=== PATIENT | female | born 1960 | race Caucasian/White ===

== ENCOUNTER 2024-06-22 09:34 | Inpatient (IN) | payer OTHER ==
[2024-06-22] MEDS ORDERED: DICYCLOMINE HCL 20 MG/2 ML AMP IM ONE (10:57)
[2024-06-22] MEDS ORDERED: NA CHLORIDE 0.9% 500 ML ONE (10:57)
[2024-06-22 10:59] LABS: Absolute Basophils 0.1 K/uL (0-0.5); Absolute Eosinophils 0.1 K/uL (0-0.5); Absolute Lymphocytes (CBC) 2.3 K/uL (0.7-4.9); Absolute Monocytes 0.9 K/uL (0.1-1.3); Absolute Neutrophil 7.4 K/uL (1.8-8.0); Basophils % 0.5 % (0-1.3); Eosinophils % 1.3 % (0-4.4); Hematocrit 44.2 % (36.0-45.0); Hemoglobin 14.7 g/dL (12.0-15.0); Lymphocytes % 20.9 % (15.3-44.8); MCH 28.7 pg (27.0-35.0); MCHC 33.3 g/dL (32.0-36.0); MCV 86.2 fL (80-100); MPV 8.7 fL (7.6-11.3); Monocytes % 8.7 % (3.3-12.3); Neutrophils % 68.6 % (41.7-73.7); Platelets 256 thou/uL (152-406); RBC Red Blood Cell Count 5.13 M/uL (3.86-4.86); Red Cell Distribution Width 14.1 % (12.1-15.2)
[2024-06-22 11:04] LABS: Specific Gravity 1.023 (1.005-1.030); Sqamous Epithelial <5 /HPF (None Seen); Transitional Epithelial <5 /HPF (None Seen); Urine Bacteria None Seen /HPF (<20); Urine Bilirubin NEGATIVE (Negative); Urine Blood Negative (Negative); Urine Clarity Turbid (Clear); Urine Color Yellow (Yellow); Urine Culture Reflex Order NOT NEEDED; Urine Glucose NEGATIVE (Negative); Urine Ketones NEGATIVE (Negative); Urine Micro Reflex YN NO BILL MICROSCOPIC; Urine Mucus 1+ /HPF (None Seen); Urine Nitrite NEGATIVE (Negative); Urine Protein NEGATIVE (Negative); Urine RBC <5 /HPF (None Seen); Urine Urobilinogen Normal (Normal); Urine WBC <5 /HPF (<5); Urine pH 5.5 (5.0-7.0)
[2024-06-22 11:17] LABS: Albumin 3.5 g/dL (3.4-5.0); Albumin/Globulin Ratio 0.8 (1.1-1.8); Anion Gap 7.8 mEq/L (5.0-15.0); Bilirubin Total 0.9 mg/dL (0.2-1.0); Globulin 4.5 g/dL (2.3-3.5); Potassium 3.8 mEq/L (3.5-5.1)
[2024-06-22 11:23] LABS: SARS-CoV-2 Antigen CONTROL BLUE LINE VIS/BG OK; SARS-CoV-2 Antigen Rapid Res Negative (Negative)
--- NOTE | 2024-06-22 12:31 | RAD REPORT ---
EXAMINATION: ONE VIEW CHEST XR CLINICAL INDICATION: Female, 64 years old.,COUGH TECHNIQUE: Frontal chest projection is submitted. Examination is limited by patient positioning and t echnique. COMPARISON: No prior exam. FINDINGS: The lungs are somewhat hypoinflated. Diffuse interstitial prominence, could reflect chronic interstit ial changes or an element of COPD. Mild streaky left basilar atelectasis. No pneumothorax or sizable effusion. The heart is normal in size. Mediastinal contours are unremarkable. IMPRESSION: No acute intrathoracic abnormalities, with chronic appearing findings as above.
--- NOTE | 2024-06-22 13:08 | RAD REPORT ---
EXAMINATION: CT Abdomen Pelvis W Contrast CLINICAL INDICATION: Female, 64 years old. ABD PAIN TECHNIQUE: CT abdomen and pelvis was performed, after the administration of IV contrast, as per [facility] protocol. Axial, sagittal and coronal reconstructions were obtained. One or more of the following dose reduction techniques were used: Automated exposure control, adjustment of the mA and k V according to patient size, and iterative reconstruction. Unless otherwise specified, incidental findings do not require dedicated imaging follow-up. COMPARISON: 04/01/2021 FINDINGS: LOWER CHEST: The visualized lung bases are clear. LIVER: Normal in size and contour. No focal lesion. BILIARY SYSTEM: No suspicious abnormalities. SPLEEN: Normal size. No focal lesion. PANCREAS: No mass, ductal dilation, or portia-pancreatic fluid. ADRENALS: Normal; no mass. KIDNEYS: Normal size and contour. No hydronephrosis. Incidentally noted exophytic right interpolar 6. 9 cm cyst, stable. URINARY BLADDER: Unremarkable. GASTROINTESTINAL TRACT: Wall thickening and adjacent fat stranding along the distal sigmoid colon, wi th ill-defined accumulation of fluid along the adventitia of the posterior wall, see series 3 image 74 and series 602 image 49 among others, may suggest a developing phlegmon. No evidence of free air, significant intra-abdominal free fluid, bowel obstruction or abscess. Hyperdense structure projecting posteriorly from the junction of the second and third part of the duo denum, measuring 2.9 cm, appears more prominent than on prior exam. APPENDIX: Normal appendix. LYMPH NODES: No lymphadenopathy. MUSCULOSKELETAL: No acute or suspicious osseous abnormality. ADDITIONAL FINDINGS: None. IMPRESSION: Changes of acute sigmoid diverticulitis, with ill-defined fluid along the adventitia of the posterior wall, measuring up to 1.1 cm in greatest dimension, present and evolving phlegmon. Questionable diverticulum arising from the junction of second and third part of the duodenum measurin g 2.9 cm, with no gas seen within. A follow-up CT of the abdomen with oral contrast is recommended in 1-3 months to reevaluate the finding, and exclude an intraluminal lesion. THIS REPORT CONTAINS FINDINGS THAT MAY BE CRITICAL TO PATIENT CARE. The findings were verbally commun icated via telephone to Dru A Page, PAC on 06/22/2024 1:02 PM.
--- NOTE | 2024-06-22 14:08 | ER ---
Nurse's Notes [facility] Name: Ashvin Hanson Age: 64 yrs Sex: Female : 1960 Arrival Date: 06/22/2024 Time: 09:34 Bed 17 Private MD: Diagnosis: Diverticulitis of large intestine without perforation or abscess without bleeding Presentation: 06/22 10:01 Chief complaint: Patient states: lower abd pain X 1 week, had blood in urine and took iw antibiotics for 4 days. Coronavirus screen: At this time, the client does not indicate any symptoms associated with coronavirus-19. Ebola Screen: No symptoms or risks identified at this time. Initial Sepsis Screen: Does the patient meet any 2 criteria? No. Patient's initial sepsis screen is negative. Does the patient have a suspected source of infection? No. Patient's initial sepsis screen is negative. Risk Assessment: Do you want to hurt yourself or someone else? Patient reports no desire to harm self or others. Onset of symptoms was June 15, 2024. 10:01 Method Of Arrival: Ambulatory iw 10:01 Acuity: AMARIS 3 iw Triage Assessment: 10:13 General: Appears uncomfortable, Behavior is calm, cooperative. Pain: Complains of pain iw in pelvis Pain does not radiate. Pain currently is 5 out of 10 on a pain scale. Quality of pain is described as aching. Neuro: Level of Consciousness is awake, alert, obeys commands, Oriented to person, place, time, situation. Cardiovascular: Capillary refill < 3 seconds Patient's skin is warm and dry. Respiratory: Airway is patent Respiratory effort is even, unlabored, Respiratory pattern is regular, symmetrical. GI: Abdomen is round non-distended, Bowel sounds present X 4 quads. Reports cramping, diarrhea, nausea. : Reports burning with urination. Musculoskeletal: Circulation, motion, and sensation intact. Range of motion: intact in all extremities. Historical: - Allergies: 10:16 No Known Allergies; iw - PMHx: 10:02 Hypothyroidism; iw - PSHx: 10:02 Total abdominal hysterectomy; iw - Immunization history:: Adult Immunizations up to date. - Infectious Disease History:: Denies. - Social history:: Smoking status: unknown. Screenin:[address] [facility] ED Fall Risk Assessment (Adult) History of falling in the last 3 months, iw including since admission No falls in past 3 months (0 pts) Confusion or Disorientation No (0 pts) Intoxicated or Sedated No (0 pts) Impaired Gait No (0 pts) Mobility Assist Device Used No (0 pt) Altered Elimination No (0 pt) Score/Fall Risk Level 0 - 2 = Low Risk Oriented to surroundings, Maintained a safe environment, Educated pt \T\ family on fall prevention, incl call for assistance when getting out of bed, Hourly rounding (assess needs \T\ fall precautionary measures) done. Abuse screen: Denies threats or abuse. Denies injuries from another. Nutritional screening: No deficits noted. Tuberculosis screening: No symptoms or risk factors identified. Assessment: 10:16 Reassessment: see triage assessment. iw 11:20 Reassessment: Patient and/or family updated on plan of care and expected duration. Pain iw level reassessed. Patient is alert, oriented x 3, equal unlabored respirations, skin warm/dry/pink. 11:20 GI: Abdomen is round non-distended, obese, Abd is soft and non tender X 4 quads. iw 12:20 Reassessment: Patient and/or family updated on plan of care and expected duration. Pain ha1 level reassessed. Patient is alert, oriented x 3, equal unlabored respirations, skin warm/dry/pink. 13:20 Reassessment: Patient and/or family updated on plan of care and expected duration. Pain ha1 level reassessed. Patient is alert, oriented x 3, equal unlabored respirations, skin warm/dry/pink. pain 2/10 Patient states feeling better. Patient states symptoms have improved. 14:00 General: Appears comfortable, well groomed, well developed, well nourished, Behavior is me1 calm, cooperative, appropriate for age. Pain: Complains of pain in pelvis Pain does not radiate. Pain currently is 3 out of 10 on a pain scale. Quality of pain is described as crampy, tender, Pain began gradually, Is continuous. Neuro: Level of Consciousness is awake, alert, obeys commands, Oriented to person, place, time, situation, Appropriate for age. Cardiovascular: Patient's skin is warm and dry. Respiratory: Airway is patent Respiratory effort is even, unlabored, Respiratory pattern is regular, symmetrical. GI: No signs and/or symptoms were reported involving the gastrointestinal system. : No signs and/or symptoms were reported regarding the genitourinary system. EENT: No signs and/or symptoms were reported regarding the EENT system. Derm: Skin is intact, is healthy with good turgor, Skin is pink, warm \T\ dry. Musculoskeletal: No signs and/or symptoms reported regarding the musculoskeletal system. Vital Signs: 10:15 BP 139 / 78; Pulse 83; Resp 17 S; Temp 98(O); Pulse Ox 98% on R/A; Weight 83.91 kg; iw Height 5 ft. 5 in. ; 11:20 BP 130 / 77; Pulse 73; Resp 18 S; Pulse Ox 98% on R/A; iw 12:25 BP 132 / 74; Pulse 73; Resp 18 S; Pulse Ox 99% on R/A; ha1 13:00 BP 115 / 69; Pulse 74; Resp 16; Pulse Ox 97% ; me1 14:00 BP 111 / 63; Pulse 78; Resp 15; Pulse Ox 97% ; me1 15:00 BP 116 / 59; Pulse 73; Resp 15; Pulse Ox 97% ; me1 16:00 BP 130 / 64; Pulse 67; Resp 16; Pulse Ox 97% ; me1 10:15 Body Mass Index 30.79 (83.91 kg, 165.1 cm) iw ED Course: 09:37 Patient arrived in ED. al6 09:38 Dru Mondragon PA is PHCP. cp 09:38 Afia Seay MD is Attending Physician. cp 10:00 Patient has correct armband on for positive identification. Bed in low position. Call iw light in reach. Side rails up X 1. Adult w/ patient. 10:00 Provided Education on: plan of care . Client placed on continuous cardiac and pulse iw oximetry monitoring. NIBP monitoring applied. Door closed. Warm blanket given. Head of bed. 10:01 Arm band placed on Patient placed in an exam room. me1 10:02 Triage completed. iw 10:13 Nilsa Castaneda, RN is Primary Nurse. iw 10:25 Inserted saline lock: 22 gauge in right forearm, using aseptic technique. Blood iw collected. Flushed with 10 mL NS. 10:43 Influenza Screen (a \T\ B) Sent. iw 10:44 SARS RAPID Sent. iw 10:44 CBC with Diff Sent. iw 10:44 CMP Sent. iw 10:44 Lipase Sent. iw 10:44 Urinalysis W/Microscopic Sent. iw 10:46 XRAY Chest (1 view) In Process Unspecified. EDMS 12:20 CT Abd/Pelvis - IV Contrast Only In Process Unspecified. EDMS 14:06 José Miguel Davis is Hospitalizing Provider. cp 14:29 Shana Barger, RN is Primary Nurse. me1 15:00 First set of blood cultures drawn. ty 15:10 Inserted saline lock: 22 gauge in left forearm, using aseptic technique. Blood ty collected. Flushed with 10 mL NS. 15:10 Initial lab(s) drawn, by me, sent to lab. Second set of blood cultures drawn. ty 15:20 No provider procedures requiring assistance completed. Patient admitted, IV remains in me1 place. Administered Medications: 11:05 Drug: Dicyclomine IM 20 mg IM once Route: IM; Site: right ventrogluteal; iw 11:30 Follow up: Response: No adverse reaction; Marked relief of symptoms ha1 11:05 Drug: NS 0.9% IV 500 ml 500 ml IV at 1 bolus once; to be given as a bolus over 30 iw minutes Volume: 500 ml; Route: IV; Rate: 1 bolus; Site: right forearm; 14:19 Follow up: Response: No adverse reaction; IV Status: Completed infusion; IV Intake: ha1 500ml 14:29 Drug: Acetaminophen PO 1000 mg PO once Route: PO; me1 15:11 Follow up: Response: No adverse reaction; Pain is decreased me1 15:11 Drug: metroNIDAZOLE IVPB 500 mg 100 ml IVPB once over 30 mins Volume: 100 ml; Route: me1 IVPB; Infused Over: 30 mins; Site: right forearm; 16:08 Follow up: Response: No adverse reaction; IV Status: Completed infusion; IV Intake: me1 100ml 16:08 Drug: Ciprofloxacin IVPB 400 mg 200 ml IVPB once over 60 mins Volume: 200 ml; Route: me1 IVPB; Infused Over: 60 mins; Site: right forearm; 16:31 Follow up: Response: No adverse reaction; IV Status: Infusion continued upon admission me1 Medication: 11:55 VIS not applicable for this client. iw Intake: 14:19 IV: 500ml; Total: 500ml. ha1 16:08 IV: 100ml; Total: 600ml. me1 Outcome: 14:07 Decision to Hospitalize by Provider. cp 15:20 Admitted to Med/surg accompanied by tech, via wheelchair, room 214, with chart, Report me1 called to faxed, receipt confirmed with Chloe 15:20 Condition: stable 15:20 Instructed on the need for admit, 16:38 Patient left the ED. me1 Signatures: Dispatcher [employer] Nilsa Domínguez RN RN iw Dru Mondragon, PA PA cp Fatmata Harrison RN RN ha1 Shana Barger RN RN me1 Andrea Ortiz Alissa al6 Corrections: (The following items were deleted from the chart) 14:18 13:20 Reassessment: Patient and/or family updated on plan of care and expected ha1 duration. Pain level reassessed. Patient is alert, oriented x 3, equal unlabored respirations, skin warm/dry/pink. Patient states feeling better. Patient states symptoms have improved. iw 14:34 14:29 metroNIDAZOLE IVPB 500 mg 100 ml IVPB in right forearm over 30 mins me1 ll1
--- NOTE | 2024-06-22 14:08 | EDPHYS ---
Physician Documentation [facility] Name: Ashvin Hanson Age: 64 yrs Sex: Female : 1960 Arrival Date: 06/22/2024 Time: 09:34 Bed 17 Private MD: ED Physician Afia Seay HPI: 06/22 10:30 This 64 yrs old Female presents to ER via Ambulatory with complaints of Abdominal Pain, cp Pain With Urination. 10:30 The patient presents with abdominal pain in the lower abdomen. Onset: The cp symptoms/episode began/occurred 1 week(s) ago. The symptoms do not radiate. Associated signs and symptoms: Pertinent positives: dysuria, dark colored urine, Pertinent negatives: blood in stools, diarrhea, vomiting. The symptoms are described as constant. Severity of pain: in the emergency department the pain is unchanged despite home interventions. Historical: - Allergies: 10:16 No Known Allergies; iw - PMHx: 10:02 Hypothyroidism; iw - PSHx: 10:02 Total abdominal hysterectomy; iw - Immunization history:: Adult Immunizations up to date. - Infectious Disease History:: Denies. - Social history:: Smoking status: unknown. ROS: 10:35 Constitutional: Negative for body aches, chills, fever, poor PO intake, cp 10:35 Eyes: Negative for injury, pain, redness, and discharge, cp 10:35 ENT: Negative for drainage from ear(s), ear pain, sore throat, difficulty swallowing, difficulty handling secretions, 10:35 Respiratory: Negative for cough, shortness of breath, wheezing, 10:35 Abdomen/GI: Positive for abdominal pain, of the right lower quadrant and left lower quadrant, Negative for vomiting, diarrhea, constipation, black/tarry stool, rectal bleeding, 10:35 Back: Negative for pain at rest, pain with movement, 10:35 : Positive for burning with urination, Negative for vaginal bleeding, 10:35 Neuro: Negative for altered mental status, dizziness, headache, weakness, 10:35 All other systems are negative, Exam: 10:40 Constitutional: The patient appears in no acute distress, alert, awake, cp non-diaphoretic, non-toxic, well developed, well nourished, 10:40 Head/Face: Normocephalic, atraumatic. cp 10:40 Eyes: Periorbital structures: appear normal, Conjunctiva: normal, no exudate, no injection, Sclera: no appreciated abnormality, Lids and lashes: appear normal, bilaterally, 10:40 ENT: External ear(s): are unremarkable, Nose: is normal, Mouth: Lips: moist, Oral mucosa: moist, Posterior pharynx: Airway: no evidence of obstruction, patent, 10:40 Chest/axilla: Inspection: normal, 10:40 Cardiovascular: Rate: normal, Rhythm: regular, Edema: is not appreciated, JVD: is not appreciated, 10:40 Respiratory: the patient does not display signs of respiratory distress, Respirations: normal, no use of accessory muscles, no retractions, labored breathing, is not present, Breath sounds: are clear throughout, no decreased breath sounds, no stridor, no wheezing, 10:40 Abdomen/GI: Inspection: abdomen appears normal, Bowel sounds: active, all quadrants, Palpation: soft, in all quadrants, mild abdominal tenderness, in the right lower quadrant and left lower quadrant, rebound tenderness, is not appreciated, involuntary guarding, is not appreciated, 10:40 Back: CVA tenderness, is absent, Vital Signs: 10:15 BP 139 / 78; Pulse 83; Resp 17 S; Temp 98(O); Pulse Ox 98% on R/A; Weight 83.91 kg; iw Height 5 ft. 5 in. ; 11:20 BP 130 / 77; Pulse 73; Resp 18 S; Pulse Ox 98% on R/A; iw 12:25 BP 132 / 74; Pulse 73; Resp 18 S; Pulse Ox 99% on R/A; ha1 13:00 BP 115 / 69; Pulse 74; Resp 16; Pulse Ox 97% ; me1 14:00 BP 111 / 63; Pulse 78; Resp 15; Pulse Ox 97% ; me1 15:00 BP 116 / 59; Pulse 73; Resp 15; Pulse Ox 97% ; me1 16:00 BP 130 / 64; Pulse 67; Resp 16; Pulse Ox 97% ; me1 10:15 Body Mass Index 30.79 (83.91 kg, 165.1 cm) iw MDM: 10:01 Medical Screening Exam initiated cp 11:00 Differential diagnosis: appendicitis, bowel obstruction, diverticulitis, non-specific cp abd pain, pancreatitis, Pyelonephritis, Ureterolithiasis, urinary tract infection. 14:10 Management of patient was discussed with the following: Bladder Tier: DR Sanchez who will consult and patient to be admitted to services of hospitalist. 14:10 I considered the following discharge prescriptions or medication management in the emergency department Medications were administered in the Emergency Department. See MAR. Counseling: I had a detailed discussion with the patient and/or guardian regarding the historical points, exam findings, and any diagnostic results supporting the discharge/admit diagnosis, lab results, radiology results. Response to treatment: the patient's symptoms have mildly improved after treatment. 14:15 Data reviewed: vital signs, nurses notes, lab test result(s), radiologic studies, CT cp scan, and as a result, I will admit patient. 06/22 09:55 Order name: Urinalysis W/Microscopic; Complete Time: 11:55 06/22 12:27 Interpretation: Normal except: [facility] Turbid; UESTR 25. 06/22 10:22 Order name: CBC with Diff; Complete Time: 11:55 06/22 12:28 Interpretation: Normal except: RBC 5.13. 06/22 10:22 Order name: CMP; Complete Time: 11:55 06/22 11:55 Interpretation: Normal except: GLUC 109; GFR 81; GLOB 4.5; A/G 0.8. 06/22 10:22 Order name: Lipase; Complete Time: 11:55 06/22 10:23 Order name: SARS RAPID; Complete Time: 11:55 06/22 10:23 Order name: Influenza Screen (a \T\ B); Complete Time: 11:55 06/22 13:49 Order name: Lactate w/ 2H reflex if indic. 06/22 13:49 Order name: Blood Culture Adult (2) 06/22 14:54 Order name: Basic Metabolic Panel [facility] 06/22 14:54 Order name: Basic Metabolic Panel [facility] 06/22 14:54 Order name: Basic Metabolic Panel [facility] 06/22 14:54 Order name: Basic Metabolic Panel [facility] 06/22 14:54 Order name: Basic Metabolic Panel [facility] 06/22 14:54 Order name: Basic Metabolic Panel [facility] 06/22 14:54 Order name: Basic Metabolic Panel [facility] 06/22 14:54 Order name: Basic Metabolic Panel [facility] 06/22 14:54 Order name: CBC with Automated Diff EDMS 06/22 14:54 Order name: CBC with Automated Diff EDMS 06/22 14:54 Order name: CBC with Automated Diff EDMS 06/22 14:54 Order name: CBC with Automated Diff EDMS 06/22 14:54 Order name: CBC with Automated Diff EDMS 06/22 14:54 Order name: CBC with Automated Diff EDMS 06/22 14:54 Order name: CBC with Automated Diff EDMS 06/22 14:54 Order name: CBC with Automated Diff EDMS 06/22 14:54 Order name: Magnesium EDMS 06/22 14:54 Order name: Magnesium EDMS 06/22 14:54 Order name: Magnesium EDMS 06/22 14:54 Order name: Magnesium EDMS 06/22 14:54 Order name: Magnesium EDMS 06/22 14:54 Order name: Magnesium EDMS 06/22 14:54 Order name: Magnesium EDMS 06/22 14:54 Order name: Magnesium EDMS 06/22 14:54 Order name: Phosphorus EDMS 06/22 14:54 Order name: Phosphorus EDMS 06/22 14:54 Order name: Phosphorus EDMS 06/22 14:54 Order name: Phosphorus EDMS 06/22 14:54 Order name: Phosphorus EDMS 06/22 14:54 Order name: Phosphorus EDMS 06/22 14:54 Order name: Phosphorus EDMS 06/22 14:54 Order name: Phosphorus EDMS 06/22 15:16 Order name: C.difficile GDH Ag EDMS 06/22 15:16 Order name: Fecal Leukocyte Stain EDMS 06/22 15:16 Order name: Ova and Parasites EDMS 06/22 15:16 Order name: Stool Culture EDMS 06/22 10:22 Order name: CT Abd/Pelvis - IV Contrast Only; Complete Time: 13:12 cp 06/22 10:23 Order name: XRAY Chest (1 view); Complete Time: 13:02 cp 06/22 14:49 Order name: CONS Physician Consult EDMS 06/22 10:22 Order name: IV Saline Lock; Complete Time: 10:44 cp 06/22 10:22 Order name: Labs collected and sent; Complete Time: 10:44 cp Administered Medications: 11:05 Drug: Dicyclomine IM 20 mg IM once Route: IM; Site: right ventrogluteal; iw 11:30 Follow up: Response: No adverse reaction; Marked relief of symptoms ha1 11:05 Drug: NS 0.9% IV 500 ml 500 ml IV at 1 bolus once; to be given as a bolus over 30 iw minutes Volume: 500 ml; Route: IV; Rate: 1 bolus; Site: right forearm; 14:19 Follow up: Response: No adverse reaction; IV Status: Completed infusion; IV Intake: ha1 500ml 14:29 Drug: Acetaminophen PO 1000 mg PO once Route: PO; me1 15:11 Follow up: Response: No adverse reaction; Pain is decreased me1 15:11 Drug: metroNIDAZOLE IVPB 500 mg 100 ml IVPB once over 30 mins Volume: 100 ml; Route: me1 IVPB; Infused Over: 30 mins; Site: right forearm; 16:08 Follow up: Response: No adverse reaction; IV Status: Completed infusion; IV Intake: me1 100ml 16:08 Drug: Ciprofloxacin IVPB 400 mg 200 ml IVPB once over 60 mins Volume: 200 ml; Route: me1 IVPB; Infused Over: 60 mins; Site: right forearm; 16:31 Follow up: Response: No adverse reaction; IV Status: Infusion continued upon admission me1 Disposition Summary: 06/22/24 14:07 Hospitalization Ordered Notes: Hospitalization Status: Inpatient Admission cp Provider: José Miguel Davis cp Location: Telemetry/[facility] (Inpatient) cp Condition: Stable cp Problem: new cp Symptoms: have improved cp Bed/Room Type: Standard Room Assignment: 214(06/22/24 15:01) sp Diagnosis - Diverticulitis of large intestine without perforation or abscess without bleeding cp Forms: - Medication Reconciliation Form cp - SBAR form cp - Leadership Thank You Letter cp Signatures: Dispatcher [employer] EDMS Jacquelin Alan Irene, RN RN iw Dru Mondragon PA PA cp Selina Calderón RN RN 1 Shana Barger RN RN ia1 Fatmata Harrison RN ha1 Corrections: (The following items were deleted from the chart) 09:56 09:56 Urinalysis W/Microscopic+U.LAB.BRZ ordered. EDMS EDMS 10:24 10:24 SARS-COV-2 Antigen Rapid+I.LAB.BRZ ordered. EDMS EDMS 10:24 10:24 Influenza Screen (A \T\ B)+BA.LAB.BRZ ordered. EDMS EDMS 15:01 14:07 cp sp
[2024-06-22] MEDS ORDERED: CIPROFLOXACIN 400mg IV 400 MG/200 ML BAG IV ONE (14:11)
[2024-06-22] MEDS ORDERED: METRONIDAZOLE 500mg IVPB 500 MG/100 ML BAG IV ONE (14:11)
[2024-06-22] MEDS ORDERED: ACETAMINOPHEN 500 MG TAB ONE (14:23)
[2024-06-22] MEDS ORDERED: ACETAMINOPHEN 325 MG TABLET PO PRN (14:48)
--- NOTE | 2024-06-22 15:11 | P.HP ---
Certification for Inpatient Patient admitted to: Inpatient With expected LOS: >2 Midnights Practitioner: I am a practitioner with admitting privileges, knowledge of patient current condition, hospital course, and medical plan of care. Services: Services provided to patient in accordance with Admission requirements found in Title 42 Section 412.3 of the Code of Federal Regulations Patient History Date of Service: 06/22/24 Reason for admission: Acute sigmoid diverticulitis History of Present Illness: Shana Hanson is a 64-year-old female with past medical history of hypothyr oidism who presents to the ED with chief complaint of abdominal pain since last night. She reports coming back from [place] and assumed she " picked up something." This morning she had a bowel movement at 2:00, 6:00, and 8:00, stomach pain started at the top of her abdomen and is now in her lower abdomen. She reports colonoscopy 10 years ago and reports. She denies diverticulitis in her family and in her past medical history. Upon evaluation in the ER CT abdomen pelvis reveals acute sigmoid diverticulitis, laboratory evaluation unremarkable, and lower abdominal pain on palpation. Chest xray reports "No acute intrathoracic abnormalities, with chronic appearing findings as above." CT abd/Pelvis reports "Changes of acute sigmoid diverticulitis, with ill-defined fluid along the adventitia of the posterior wall, measuring up to 1.1 cm in greatest dimension, present and evolving phlegmon. Questionable diverticulum arising from the junction of second and third part of the duodenum measuring 2.9 cm, with no gas seen within. A follow-up CT of the abdomen with oral contrast is recommended in 1-3 months to reevaluate the finding, and exclude an intraluminal lesion" Shana will be admitted to hospitalist service for further treatment of Acute sigmoid diverticulitis. Allergies Latex, Natural Rubber Allergy (Verified 06/22/24 17:11) Itching Home Medications: Levothyroxine [Synthroid] 88 mcg PO [id number] 06/22/24 - Past Medical/Surgical History -: Hypothyroidism - Social History Smoking Status: Never smoker Alcohol use: No CD- Drugs: No Review of Systems Gastrointestinal: Abdominal Pain, Diarrhea Physical Examination - Physical Exam General: Alert, In no apparent distress, Oriented x3 HEENT: Atraumatic, Normocephalic, PERRLA Neck: Supple, 2+ carotid pulse no bruit, JVD not distended Respiratory: Clear to auscultation bilaterally, Normal air movement Cardiovascular: Normal pulses, Regular rate/rhythm, Normal S1 S2 Capillary refill: <2 Seconds Gastrointestinal: Hypoactive, Soft and benign, Tenderness (lower abdomen) Musculoskeletal: No clubbing Integumentary: No rashes Neurological: Normal speech, Normal tone - Studies Laboratory Data (last 24 hrs) 06/22/24 06/22/24 10:35 10:35 WBC 10.80 Hgb 14.7 Hct 44.2 Plt Count 256 Sodium 137 Potassium 3.8 BUN 11 Creatinine 0.80 Glucose 109 H Total Bilirubin 0.9 AST 15 ALT 21 Alkaline Phosphatase 75 Lipase 34 Microbiology Data (last 24 hrs): 06/22/24 10:35 Nasopharnyx Influenza Type A Antigen Screen - Final 06/22/24 10:35 Nasopharnyx Influenza Type B Antigen Screen - Final Assessment and Plan - Plan Assessment and plan Acute sigmoid diverticulitis Diarrhea suspect candidiasis -CT abd/Pelvis reports "Changes of acute sigmoid diverticulitis, with ill- defined fluid along the adventitia of the posterior wall, measuring up to 1.1 cm in greatest dimension, present and evolving phlegmon. Questionable diverticulum arising from the junction of second and third part of the duodenum measuring 2.9 cm, with no gas seen within. A follow-up CT of the abdomen with oral contrast is recommended in 1-3 months to reevaluate the finding, and exclude an intraluminal lesion" -Clear liquid diet -Consult general surgery -Pain control -IV fluids -Cipro and Flagyl, fluconazole x 1 -Reports since leaving out of country, will remain stable studies -Stool culture, C. difficile, fecal leukocytes, ova and parasite -Will need to follow-up with colonoscopy 6 weeks after recovery Hypothyroidism -Continue home medication DVT PPx SCD Full code LOS 2 to 3 days Discharge Plan: Home Plan to discharge in: 72 Hours - Advance Directives Does patient have a Living Will: No Does patient have a Durable POA for Healthcare: No
[2024-06-22] MEDS: NA CHLORIDE 0.9% 1,000 ML IV SCH (17:01)
[2024-06-22] MEDS: PANTOPRAZOLE 40 MG INJ IVP SCH (17:01)
[2024-06-22] MEDS ORDERED: CIPROFLOXACIN 400mg IV 400 MG/200 ML BAG IV SCH (21:00)
[2024-06-22] MEDS: CIPROFLOXACIN 400mg IV 400 MG/200 ML BAG IV SCH (23:02)
[2024-06-23] MEDS: METRONIDAZOLE 500mg IVPB 500 MG/100 ML BAG IV SCH (00:40)
[2024-06-23] MEDS: HYDROCODONE/APAP 5/325 MG TAB PO PRN (04:13)
[2024-06-23] MEDS: FLUCONAZOLE 100 MG TAB PO ONE ×2 (04:14→05:00)
[2024-06-23 04:42] LABS: Absolute Basophils 0.1 K/uL (0-0.5); Absolute Eosinophils 0.1 K/uL (0-0.5); Absolute Lymphocytes (CBC) 2.1 K/uL (0.7-4.9); Absolute Monocytes 0.7 K/uL (0.1-1.3); Absolute Neutrophil 5.3 K/uL (1.8-8.0); Basophils % 0.8 % (0-1.3); Eosinophils % 1.7 % (0-4.4); Hematocrit 38.9 % (36.0-45.0); Hemoglobin 12.9 g/dL (12.0-15.0); Lymphocytes % 25.2 % (15.3-44.8); MCH 28.6 pg (27.0-35.0); MCHC 33.3 g/dL (32.0-36.0); MCV 86.1 fL (80-100); Monocytes % 8.7 % (3.3-12.3); Neutrophils % 63.6 % (41.7-73.7); Nucleated Red Blood Cells % 0.1 % (0-0); Platelets 241 thou/uL (152-406); RBC Red Blood Cell Count 4.51 M/uL (3.86-4.86); Red Cell Distribution Width 14.2 % (12.1-15.2)
[2024-06-23 04:50] LABS: Anion Gap 7.8 mEq/L (5.0-15.0); Magnesium 2.2 mg/dL (1.6-2.4); Phosphorus 2.8 mg/dL (2.5-4.9); Potassium 3.8 mEq/L (3.5-5.1)
[2024-06-23] MEDS ORDERED: ENOXAPARIN 40 MG/0.4 ML SQ SCH (09:00)
--- NOTE | 2024-06-23 15:25 | P.PN ---
Date of Service: 06/23/24 Subjective Reports no more diarrhea and feeling better no new complaints Will remain on CLD d/t abscess ROS 10 point ROS as noted above, otherwise negative Physical Exam General: Alert and Oriented x3, NAD HEENT: Atraumatic, Normocephalic, PERRLA Neck: Supple, 2+ carotid pulse no bruit, JVD not distended Respiratory: Clear BBS, Normal air movement, on RA Cardiovascular: Normal pulses, NSR, Normal S1 S2 Capillary refill: <2 Seconds Gastrointestinal: Hypoactive, Soft and benign, Tenderness (lower abdomen) Musculoskeletal: No clubbing Integumentary: No rashes Neurological: Normal speech, Normal tone Vitals Reviewed Problem list Acute sigmoid diverticulitis with abscess Diarrhea suspect candidiasis Hypothyroidism Assessment and Plan Acute sigmoid diverticulitis with abscess Diarrhea suspect candidiasis -CT abd/Pelvis reports "Changes of acute sigmoid diverticulitis, with ill- defined fluid along the adventitia of the posterior wall, measuring up to 1.1 cm in greatest dimension, present and evolving phlegmon. Questionable diverticulum arising from the junction of second and third part of the duodenum measuring 2.9 cm, with no gas seen within. A follow-up CT of the abdomen with oral contrast is recommended in 1-3 months to reevaluate the finding, and exclude an intraluminal lesion" -remain on Clear liquid diet -Consult general surgery -Pain control -IV fluids -Continue Cipro and Flagyl, (06/22) fluconazole x 1 -Reports since leaving out of country, will remain stable studies -Stool culture, C. difficile, fecal leukocytes, ova and parasite- when available -Will need to follow-up with colonoscopy 6 weeks after recovery -CT abd/pelvis with PO contrast in the AM Hypothyroidism -Continue home medication DVT PPx SCD Full code LOS 2 to 3 days Discharge Plan: Home Plan to discharge in: 72 Hours <RajErika - Last Filed: 06/23/24 15:35> Patient seen and examined. Plan of care discussed with Ms. Anthony Patient reports significant improvement in her abdominal pain. She denies any BM but states she has been passing flatus. She is requesting for food. No recorded fever. Diagnosis Acute Diverticulitis Developing abscess Suspected duodenal diverticulum. Recent travel to [place] Plan: Continue IV ciprofloxacin and Flagyl Stool studies-culture, ova and parasite. Awaiting general surgery Dr. Daniel input Clear liquid diet Serial abdominal examination. May repeat CT abdomen and pelvis with oral contrast to reevaluate for abscess formation and also to further evaluate the mid abdomen fluid collection. <herrera grant - Last Filed: 06/23/24 17:10>
[2024-06-23] MEDS: SODIUM CHLORIDE 0.9% 10ML INJ IV PRN (20:00)
[2024-06-24 04:48] LABS: Absolute Eosinophils 0.2 K/uL (0-0.5); Absolute Lymphocytes (CBC) 1.7 K/uL (0.7-4.9); Absolute Monocytes 0.5 K/uL (0.1-1.3); Absolute Neutrophil 2.9 K/uL (1.8-8.0); Basophils % 0.7 % (0-1.3); Eosinophils % 3.6 % (0-4.4); Hematocrit 39.1 % (36.0-45.0); Hemoglobin 13.2 g/dL (12.0-15.0); Lymphocytes % 31.9 % (15.3-44.8); MCH 28.7 pg (27.0-35.0); MCHC 33.7 g/dL (32.0-36.0); MCV 85.2 fL (80-100); Monocytes % 9.9 % (3.3-12.3); Neutrophils % 53.9 % (41.7-73.7); Platelets 247 thou/uL (152-406); RBC Red Blood Cell Count 4.59 M/uL (3.86-4.86); Red Cell Distribution Width 14.5 % (12.1-15.2)
[2024-06-24 05:03] LABS: Anion Gap 8.4 mEq/L (5.0-15.0); Phosphorus 2.6 mg/dL (2.5-4.9); Potassium 3.4 mEq/L (3.5-5.1)
--- NOTE | 2024-06-24 10:33 | P.PN ---
Date of Service: 06/24/24 Subjective Awake and reports feeling better, pain has decreased, reports flatulance awaiting CT scan this morning no new complaints ROS 10 point ROS as noted above, otherwise negative Physical Exam General: AAO x3, NAD HEENT: Atraumatic, Normocephalic, PERRLA Neck: Supple, 2+ carotid pulse no bruit, JVD not distended Respiratory: Clear BBS, nonlaborded breathing, on RA Cardiovascular: Normal pulses, NSR, Normal S1 S2 Capillary refill: <2 Seconds Gastrointestinal: Hypoactive, Soft on palpation, Tenderness (lower abdomen) Musculoskeletal: No clubbing Integumentary: No rashes Neurological: Normal speech, Normal tone Vitals Reviewed Problem list Acute sigmoid diverticulitis with abscess Diarrhea suspect candidiasis Hypothyroidism Assessment and Plan Acute sigmoid diverticulitis with abscess Diarrhea suspect candidiasis -CT abd/Pelvis reports "Changes of acute sigmoid diverticulitis, with ill- defined fluid along the adventitia of the posterior wall, measuring up to 1.1 cm in greatest dimension, present and evolving phlegmon. Questionable diverticulum arising from the junction of second and third part of the duodenum measuring 2.9 cm, with no gas seen within. A follow-up CT of the abdomen with oral contrast is recommended in 1-3 months to reevaluate the finding, and exclude an intraluminal lesion" -NPO for CT -Consult general surgery -Pain control -IV fluids -Continue Cipro and Flagyl, (06/22) fluconazole x 1 -Reports since leaving out of country, will remain stable studies -Stool culture, C. difficile, fecal leukocytes, ova and parasite- when available -Will need to follow-up with colonoscopy 6 weeks after recovery -CT abd/pelvis with PO contrast results pending Hypothyroidism -Continue home medication DVT PPx SCD Full code LOS 2 to 3 days Discharge Plan: Home Plan to discharge in: 72 Hours <Erika Anthony - Last Filed: 06/24/24 10:34> Patient seen and examined, plan of care discussed with Ms. Anthony. General surgery Dr. Sanchez evaluated patient. Patient started on full liquid diet per Dr. Sanchez recommendation. Dr. Sanchez recommend discharge in a.m. with oral antibiotics. Patient will follow-up with Dr. Sanchez as an outpatient with repeat CT abdomen. She will also need colonoscopy within 2 months. <herrera grant - Last Filed: 06/24/24 20:33>
--- NOTE | 2024-06-24 10:38 | RAD REPORT ---
EXAMINATION: CT ABDOMEN AND PELVIS WITH CONTRAST CLINICAL INDICATION: Abdominal pain TECHNIQUE: CT abdomen and pelvis was performed, after the administration of 100 cc Isovue-300.. Sagit ratna and coronal reconstructions were obtained. One or more of the following dose reduction techniques were used: Automated exposure control, adjustment of the mA and kV according to patient si ze, and iterative reconstruction. Unless otherwise specified, incidental findings do not require dedicated imaging follow-up. [id number]. Oral contrast was given. COMPARISON: .June 22, 2024 FINDINGS: Liver, spleen, pancreas, adrenals and left kidney appear unremarkable. Right renal cyst unchanged. Normal appendix Diverticula stem from predominantly the sigmoid colon. Mild stranding adjacent to the sigmoid colon u nchanged.. 1 cm abscess has become more well-defined. Hysterectomy. No adnexal mass : IMPRESSION: Mild sigmoid diverticulitis. 1 cm abscess has become more well-defined.. No extraluminal air
[2024-06-24] MEDS: POTASSIUM CL SA 10 MEQ TAB PO ONE ×2 (10:44→10:52)
[2024-06-24] MEDS: LEVOTHYROXINE SOD 0.088 MG TAB PO SCH (10:52)
[2024-06-24 11:33] LABS: C.diff Antigen/Toxin Ag neg : Tox neg (NEG : NEG); CDIFF INTERNAL NEG CONTROL White Background (WHITE BKGD); STOOL CONSISTENCY Formed/Solid (soft)
[2024-06-24] MEDS: AMOX/K CLAV 875 MG TAB PO SCH (20:14)
[2024-06-24] MEDS: SMZ./TMP. 800/160 MG TABLET PO SCH (20:14)
[2024-06-25 06:22] LABS: Anion Gap 7.7 mEq/L (5.0-15.0); Magnesium 2.2 mg/dL (1.6-2.4); Phosphorus 2.8 mg/dL (2.5-4.9); Potassium 3.7 mEq/L (3.5-5.1)
[2024-06-25 06:23] LABS: Absolute Basophils 0.1 K/uL (0-0.5); Absolute Eosinophils 0.3 K/uL (0-0.5); Absolute Lymphocytes (CBC) 1.9 K/uL (0.7-4.9); Absolute Monocytes 0.6 K/uL (0.1-1.3); Absolute Neutrophil 2.6 K/uL (1.8-8.0); Eosinophils % 4.7 % (0-4.4); Hematocrit 39.9 % (36.0-45.0); Hemoglobin 13.6 g/dL (12.0-15.0); Lymphocytes % 35.3 % (15.3-44.8); MCH 28.5 pg (27.0-35.0); MCV 83.8 fL (80-100); MPV 9.3 fL (7.6-11.3); Monocytes % 10.5 % (3.3-12.3); Neutrophils % 48.5 % (41.7-73.7); Nucleated Red Blood Cells % 0.1 % (0-0); Platelets 256 thou/uL (152-406); RBC Red Blood Cell Count 4.76 M/uL (3.86-4.86); Red Cell Distribution Width 14.2 % (12.1-15.2)
[2024-06-25] MEDS ORDERED: POTASSIUM CL SA 10 MEQ TAB PO ONE (08:00)
--- NOTE | 2024-06-25 13:27 | P.DS ---
Admission Date: 06/22/24 Discharge Date: 06/25/24 Disposition: ROUTINE DISCHARGE Discharge Condition: GOOD Reason for Admission: Acute sigmoid diverticulitis Consultations: General surgery-Dr. Sanchez Brief History of Present Illness: Shana Hanson is a 64-year-old female with past medical history of hypothyroidism who presents to the ED with chief complaint of abdominal pain since last night. She reports coming back from [place] and assumed she " picked up something." This morning she had a bowel movement at 2:00, 6:00, and 8:00, stomach pain started at the top of her abdomen and is now in her lower abdomen. She reports colonoscopy 10 years ago and reports. She denies diverticulitis in her family and in her past medical history. Upon evaluation in the ER CT abdomen pelvis reveals acute sigmoid diverticulitis, laboratory evaluation unremarkable, and lower abdominal pain on palpation. Hospital Course: Patient was admitted to the hospital for diverticulitis with abscess. She was treated with conservative measures including IV antibiotics and her diet was slowly advanced. She has remained afebrile with normal white blood cell count, abdominal pain significantly improved has not needed pain medicine last 48 hours. She tolerated a soft diet last night and surgery recommends outpatient follow-up. Patient will be prescribed a 2-week course of oral antibiotics, should follow-up with general surgery in 1 to 2 weeks. We also discussed the importance of a colonoscopy in the next 6 to 8 weeks and a low residual/fiber diet during the acute phase of her treatment. Prescriptions for Augmentin, Bactrim for 2 weeks sent to pharmacy. The other home occasions as previously prescribed. Vital Signs/Physical Exam: Temp Pulse Resp BP Pulse Ox 97.4 F 65 18 120/75 96 06/25/24 08:00 06/25/24 08:00 06/25/24 08:00 06/25/24 08:00 06/25/24 08:00 General: Alert, In no apparent distress, Oriented x3 HEENT: Atraumatic, PERRLA Neck: Supple, JVD not distended Respiratory: Clear to auscultation bilaterally, Normal air movement Cardiovascular: Regular rate/rhythm, Normal S1 S2 Gastrointestinal: Normal bowel sounds, No tenderness Musculoskeletal: No tenderness Integumentary: No rashes Neurological: Normal speech, Normal tone, Normal affect Laboratory Data at Discharge: WBC 5.40 thou/uL (4.3-10.9) 06/25/24 04:09 Hgb 13.6 g/dL (12.0-15.0) 06/25/24 04:09 Hct 39.9 % (36.0-45.0) 06/25/24 04:09 Plt Count 256 thou/uL (152-406) 06/25/24 04:09 Sodium 140 mEq/L (136-145) 06/25/24 04:09 Potassium 3.7 mEq/L (3.5-5.1) 06/25/24 04:09 BUN 6 mg/dL (7-18) L 06/25/24 04:09 Creatinine 0.69 mg/dL (0.55-1.02) 06/25/24 04:09 Glucose 100 mg/dL (74-106) 06/25/24 04:09 Phosphorus 2.8 mg/dL (2.5-4.9) 06/25/24 04:09 Magnesium 2.2 mg/dL (1.6-2.4) 06/25/24 04:09 Total Bilirubin 0.9 mg/dL (0.2-1.0) 06/22/24 10:35 AST 15 U/L (15-37) 06/22/24 10:35 ALT 21 U/L (13-56) 06/22/24 10:35 Alkaline Phosphatase 75 U/L (45-117) 06/22/24 10:35 Lipase 34 U/L (13-75) 06/22/24 10:35 Home Medications: Levothyroxine [Synthroid*] 88 mcg PO [id number] 06/22/24 Amox/Clavulanate [Augmentin 875-125 Tab*] 875 mg PO BID 14 Days #28 tab 06/25/24 Smz./Tmp. [Bactrim Ds 800 MG/160 MG*] 1 tab PO BID 14 Days #28 tab 06/25/24 New Medications: Amox/Clavulanate [Augmentin 875-125 Tab*] 875 mg PO BID 14 Days #28 tab Smz./Tmp. [Bactrim Ds 800 MG/160 MG*] 1 tab PO BID 14 Days #28 tab Physician Discharge Instructions: Patient was admitted to the hospital for diverticulitis with abscess. She was treated with conservative measures including IV antibiotics and her diet was slowly advanced. She has remained afebrile with normal white blood cell count, abdominal pain significantly improved has not needed pain medicine last 48 hours. She tolerated a soft diet last night and surgery recommends outpatient follow-up. Patient will be prescribed a 2-week course of oral antibiotics, should follow-up with general surgery in 1 to 2 weeks. We also discussed the importance of a colonoscopy in the next 6 to 8 weeks and a low residual/fiber diet during the acute phase of her treatment. Prescriptions for Augmentin, Bactrim for 2 weeks sent to pharmacy. The other home occasions as previously prescribed. Diet: low fiber Activity: Ad jaylyn Followup: Nitish Sanchez MD [ACTIVE - CAN ADMIT] - 1-2 Weeks OOT,CheOT [Primary Care Provider] - 1 Week Time spent managing pt's care (in minutes): 41
[2024-06-25 15:25] VITALS: BP 120/75; TEMP 97.4; O2SAT 94; BMI 30.7
== END 2024-06-25 10:03 | disposition home or self-care (01) | DRG 392 ==
LOC: ER 09:34 → 2ND 14:46
PROVIDERS: ADMIT Internal Medicine; ATTEND Hospitalist
DX: K57.20 Diverticulitis of large intestine with perforation and abscess without bleeding (principal); E03.9 Hypothyroidism, unspecified; Z91.040 Latex allergy status; Z79.890 Hormone replacement therapy; Z79.899 Other long term (current) drug therapy; Z90.710 Acquired absence of both cervix and uterus; Z11.52 Encounter for screening for COVID-19
CPT/HCPCS: 36415; 71045; 74177; 80048; 80053; 81001; 83605; 83690; 83735; 84100; 85025; 87040; 87045; 87046; 87177; 87209; 87324; 87804; 87811; 89055; 96361; 96365; 96367; 96372; 99285; A4216; J0500; J0744; J2470; J7030; J7040; Q9967